=== PATIENT | female | born 1975 | race Caucasian/White ===

== ENCOUNTER → 2019-09-04 13:12 | Outpatient (BNVA) | payer MEDICAID, SELFPAY | PROVIDERS: Family Provider Family Medicine; PCP Family Medicine; Visit Provider Psychiatry & Neurology Psychiatry | DX: F41.1 Generalized anxiety disorder (principal); F33.1 Major depressive disorder, recurrent, moderate; F43.12 Post-traumatic stress disorder, chronic | CPT/HCPCS: 99213 ==

== ENCOUNTER 2019-09-17 20:00 | Outpatient (CLI) | payer MEDICAID, SELFPAY | END 2019-09-17 20:01 | disposition home or self-care (01) | LOC: SLEEP 09-18 09:32 | PROVIDERS: Family Provider Family Medicine; PCP Family Medicine; Visit Provider Family Medicine | DX: G47.30 Sleep apnea, unspecified (principal) | CPT/HCPCS: 95810 ==

== ENCOUNTER → 2019-11-07 08:39 | Outpatient (BNVA) | payer MEDICAID, SELFPAY | PROVIDERS: Family Provider Family Medicine; Visit Provider Psychiatry & Neurology Psychiatry | DX: F33.2 Major depressive disorder, recurrent severe without psychotic features (principal); F43.12 Post-traumatic stress disorder, chronic; F41.1 Generalized anxiety disorder | CPT/HCPCS: 99214 ==

== ENCOUNTER 2019-12-26 20:00 | Outpatient (CLI) | payer MEDICAID, SELFPAY | END 2019-12-26 20:01 | disposition home or self-care (01) | LOC: SLEEP 12-27 09:23 | PROVIDERS: Family Provider Family Medicine; Visit Provider Family Medicine | DX: G47.30 Sleep apnea, unspecified (principal) | CPT/HCPCS: 95811 ==

== ENCOUNTER → 2020-01-29 07:46 | Outpatient (BNVA) | payer MEDICAID, SELFPAY | PROVIDERS: Family Provider Family Medicine; Visit Provider Psychiatry & Neurology Psychiatry | DX: F41.1 Generalized anxiety disorder (principal); F43.12 Post-traumatic stress disorder, chronic; F33.2 Major depressive disorder, recurrent severe without psychotic features | CPT/HCPCS: 99213 ==

== ENCOUNTER → 2020-03-11 10:03 | Outpatient (BNVA) | payer MEDICAID, SELFPAY | PROVIDERS: Family Provider Family Medicine; Visit Provider Family Medicine | DX: E11.9 Type 2 diabetes mellitus without complications (principal); F33.2 Major depressive disorder, recurrent severe without psychotic features | CPT/HCPCS: 80048; 80175; 83036 ==

== ENCOUNTER 2020-03-19 13:29 | Outpatient (CLI) | payer MEDICAID, SELFPAY ==
--- NOTE | 2020-03-19 | MR_ITS ---
WS: [id number] [facility] 1975 MRI LUMBAR SPINE NONCONTRAST TECHNIQUE: Sagittal T1, T2 and STIR imaging. Axial T1 and T2 imaging. CLINICAL INFORMATION: Left L4-5 radiculopathy COMPARISON: FINDINGS: Mild lumbar curve. No acute compression. No high-grade central canal stenosis. Alignment appears unch anged since 2019. L1-L2: Mild annular bulging with slight effacement of the ventral thecal sac. Spinal canal and forame n are patent. Mild facet arthropathy. L2-L3: No significant disc bulging. Moderate facet arthropathy. Spinal canal and foramen are patent. L3-L4: Mild annular bulging with narrowing of the right subarticular recess. Small right foraminal pr otrusion with moderate right foraminal narrowing. Contact of the exiting right L3 nerve root is uncha nged since 2019. Left foramen is patent. Moderate facet arthropathy. L4-L5: Mild annular bulging with slight effacement of ventral thecal sac. Mild right and no significa nt left foraminal narrowing. Moderate facet arthropathy. L5-S1: Mild disc osteophytic ridging with slight effacement of ventral thecal sac. Tiny right proxima l foraminal protrusion slightly encroaches on the exiting right L5 nerve root unchanged. Foramen are patent. Mild facet arthropathy. Spinal canal is patent. 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 MR/MR lumbar spine wo con* [id number] IMPRESSION: 1. No significant changes since . 2. Mild lumbar curve. No acute compression. No high-grade central canal stenos is. 3. Small right foraminal protrusion L3-4 contacts the exiting right L3 nerve r oot. Recommend correlation for L3 nerve root symptoms. 4. Tiny right proximal foraminal protrusion with a small annular fissure slig htly encroaches on the exiting right L5 nerve root without significant impingem ent. This appears unchanged. 5. Mild to moderate facet arthropathy L3-L5.
== END 2020-03-19 13:30 | disposition home or self-care (01) ==
LOC: RADWPI 13:33
PROVIDERS: Family Provider Family Medicine; PCP Family Medicine; Visit Provider Family Medicine
DX: M54.16 Radiculopathy, lumbar region (principal); M51.26 Other intervertebral disc displacement, lumbar region; M47.816 Spondylosis without myelopathy or radiculopathy, lumbar region
CPT/HCPCS: 72148

== ENCOUNTER 2020-04-01 14:17 | Outpatient (CLI) | payer MEDICAID, SELFPAY ==
--- NOTE | 2020-04-01 14:36 | XRR_ITS ---
PROCEDURE INFORMATION: Exam: XR Thoracic Spine, 3 Views Exam date and time: 04/01/2020 2:58 PM Age: 44 years old Clinical indication: Pain in thoracic spine; Additional info: Pain in neck and back from large breasts TECHNIQUE: Imaging protocol: XR of the thoracic spine, 3 views. COMPARISON: No relevant prior studies available. FINDINGS: Vertebrae: Normal. No acute fracture. Normal alignment. Soft tissues: Unremarkable. XR/XR thoracic spine 2V [id number] IMPRESSION: Negative for acute bony abnormality
--- NOTE | 2020-04-01 14:38 | XRR_ITS ---
PROCEDURE INFORMATION: Exam: XR Cervical Spine, 2 or 3 Views Exam date and time: 04/01/2020 2:58 PM Age: 44 years old Clinical indication: Neck pain; Additional info: Neck and back pain from large breasts TECHNIQUE: Imaging protocol: XR of the cervical spine, 2 or 3 views. COMPARISON: No relevant prior studies available. FINDINGS: Vertebrae: Normal. No acute fracture. There is loss of cervical lordosis suggesting muscle spasm. There is mild osteoarthritis Soft tissues: A metallic pin is seen within the oral cavity. XR/XR cervical spine 3V* [id number] IMPRESSION: 1. No acute findings. 2. Mild osteoarthritis 3. Reversal of cervical lordosis 4. Negative for acute bony abnormality
== END 2020-04-01 14:18 | disposition home or self-care (01) ==
LOC: RAD 14:19
PROVIDERS: PCP Family Medicine; Visit Provider Family Medicine
DX: M54.2 Cervicalgia (principal); M47.812 Spondylosis without myelopathy or radiculopathy, cervical region
CPT/HCPCS: 72040; 72070

== ENCOUNTER → 2020-04-02 12:39 | Outpatient (BNVA) | payer MEDICAID, SELFPAY | PROVIDERS: PCP Family Medicine; Referring Provider Family Medicine; Visit Provider Anesthesiology Pain Medicine | DX: M47.816 Spondylosis without myelopathy or radiculopathy, lumbar region (principal); M51.16 Intervertebral disc disorders with radiculopathy, lumbar region; M54.9 Dorsalgia, unspecified; F17.210 Nicotine dependence, cigarettes, uncomplicated | CPT/HCPCS: 99203 ==

== ENCOUNTER → 2020-04-03 08:23 | Outpatient (BNVA) | payer MEDICAID, SELFPAY | PROVIDERS: PCP Family Medicine; Visit Provider Psychiatry & Neurology Psychiatry | DX: F41.1 Generalized anxiety disorder (principal); F43.12 Post-traumatic stress disorder, chronic; F33.2 Major depressive disorder, recurrent severe without psychotic features | CPT/HCPCS: 99213 ==

== ENCOUNTER 2020-04-22 13:26 | Outpatient (CLI) | payer MEDICAID, SELFPAY ==
--- NOTE | 2020-04-22 13:30 | MM_ITS ---
WS: [id number] BILATERAL DIGITAL SCREENING MAMMOGRAPHY WITH CAD CLINICAL INFORMATION: SCREENING HISTORY: Screening mammogram. No current complaints. COMPARISON: TECHNIQUE: Bilateral CC and MLO views. FINDINGS: Scattered fibroglandular densities bilaterally. No suspicious focal mass, asymmetry, calcifications, or architectural distortion. No evidence of malignancy. Stable punctate and lucent centered calcifica tions. MM/[place] [id number] IMPRESSION: BI-RADS: 2-Benign FOLLOW UP: 1 Year Follow-up Recommend return to annual screening mammography.
== END 2020-04-22 13:27 | disposition home or self-care (01) ==
LOC: RADSHAW 13:28
PROVIDERS: PCP Family Medicine; Visit Provider Family Medicine
DX: Z12.31 Encounter for screening mammogram for malignant neoplasm of breast (principal)
CPT/HCPCS: 77067

== ENCOUNTER → 2020-04-22 16:50 | Outpatient (BNVA) | payer MEDICAID, SELFPAY | PROVIDERS: PCP Family Medicine; Visit Provider Nurse Practitioner Family | DX: E11.9 Type 2 diabetes mellitus without complications (principal) | CPT/HCPCS: 36416; 82962 ==

== ENCOUNTER → 2020-07-20 14:38 | Outpatient (BNVA) | payer MEDICAID, SELFPAY | PROVIDERS: PCP Family Medicine; Visit Provider Family Medicine | DX: E11.9 Type 2 diabetes mellitus without complications (principal); I10 Essential (primary) hypertension; E28.39 Other primary ovarian failure | CPT/HCPCS: 80048; 83036 ==

== ENCOUNTER → 2020-07-23 11:06 | Outpatient (BNVA) | payer MEDICAID, SELFPAY | PROVIDERS: PCP Family Medicine; Visit Provider Anesthesiology Pain Medicine | DX: M54.9 Dorsalgia, unspecified (principal); M47.816 Spondylosis without myelopathy or radiculopathy, lumbar region; M51.16 Intervertebral disc disorders with radiculopathy, lumbar region; M79.605 Pain in left leg; F17.210 Nicotine dependence, cigarettes, uncomplicated; Z79.891 Long term (current) use of opiate analgesic | CPT/HCPCS: 99213; 99214 ==

== ENCOUNTER → 2020-07-27 09:03 | Outpatient (BNVA) | payer MEDICAID, SELFPAY | PROVIDERS: PCP Family Medicine; Visit Provider Psychiatry & Neurology Psychiatry | DX: F43.12 Post-traumatic stress disorder, chronic (principal); F41.1 Generalized anxiety disorder; F33.2 Major depressive disorder, recurrent severe without psychotic features | CPT/HCPCS: 99214 ==

== ENCOUNTER → 2020-10-19 07:57 | Outpatient (BNVA) | payer MEDICAID, SELFPAY | PROVIDERS: PCP Family Medicine; Visit Provider Psychiatry & Neurology Psychiatry | DX: F43.12 Post-traumatic stress disorder, chronic (principal); F41.1 Generalized anxiety disorder; F33.2 Major depressive disorder, recurrent severe without psychotic features; F17.200 Nicotine dependence, unspecified, uncomplicated | CPT/HCPCS: 99214 ==

== ENCOUNTER 2020-11-13 13:49 | Outpatient (CLI) | payer MEDICAID, SELFPAY ==
--- NOTE | 2020-11-13 13:55 | CT_ITS ---
WS: [id number] CT ABDOMEN AND PELVIS WITH CONTRAST HISTORY: R10.31 - Right lower quadrant pain TECHNIQUE: Imaging performed of the abdomen and pelvis with IV contrast. Single phase imaging of the abdomen. Coronal and sagittal reformats are submitted. All CT scans at [facility] use at least one of these dose optimization techniques: automated exposure control; mA and/or kV adjustment per patient size (includes targeted exams where dose is matched to clinical indication); or iterativ e reconstruction. IV CONTRAST: Omnipaque 300; 95 mL IV. Oral contrast: No DLP: 1804.42 mGy.cm COMPARISON: 02/12/2015 Lower thorax: Benign granuloma at the RIGHT lung base. Heart is normal size. No hiatal hernia. Liver/biliary system: Marked hepatomegaly and diffuse hepatic steatosis. Liver measures greater than 21 cm in length. No mass. Normal portal vein. Gallbladder: Status post cholecystectomy. Pancreas: Normal size pancreas and pancreatic duct. No adjacent inflammation. Spleen: Normal size spleen. No mass or infarct. Adrenal glands: Normal. Right kidney: Cortical cyst upper pole measures 8 mm. Left kidney: Normal. Aorta: Mild atherosclerosis with no aneurysm. Lymphadenopathy: None. Free fluid: None. GI tract: Appendix is normal. No significant fecal retention. No wall thickening or perimucosal edema . No obstruction. No significant diverticular disease. Abdominal wall: Unremarkable abdominal wall. No hernia. Pelvis: Well-distended urinary bladder. Prior hysterectomy. No adnexal masses. The LEFT ovary is iden tified and contains small follicles. Bones: Mild straightening of the normal lumbar lordosis. CT/CT abdomen pelvis w con* [id number] IMPRESSION: 1. Marked hepatomegaly and severe hepatic steatosis. 2. Prior cholecystectomy. 3. No acute abnormalities. 4. Prior hysterectomy. 5. Normal appendix.
[2020-11-13] MEDS: iohexol 300 mg/mL 100 mL Btl IV (14:18)
== END 2020-11-13 13:50 | disposition home or self-care (01) ==
PROVIDERS: PCP Family Medicine; Visit Provider Family Medicine
DX: R10.31 Right lower quadrant pain (principal); R16.0 Hepatomegaly, not elsewhere classified; K76.0 Fatty (change of) liver, not elsewhere classified; Z90.49 Acquired absence of other specified parts of digestive tract; Z90.710 Acquired absence of both cervix and uterus
CPT/HCPCS: 74177

== ENCOUNTER → 2020-11-19 12:24 | Outpatient (BNVA) | payer MEDICAID, SELFPAY | PROVIDERS: PCP Family Medicine; Visit Provider Family Medicine | DX: E11.9 Type 2 diabetes mellitus without complications (principal); R10.31 Right lower quadrant pain; E28.39 Other primary ovarian failure; M51.16 Intervertebral disc disorders with radiculopathy, lumbar region; F41.1 Generalized anxiety disorder; G89.4 Chronic pain syndrome; G47.33 Obstructive sleep apnea (adult) (pediatric); L73.9 Follicular disorder, unspecified | CPT/HCPCS: 83036; 85025 ==

== ENCOUNTER → 2021-01-13 12:29 | Outpatient (BNVA) | payer MEDICAID, SELFPAY | PROVIDERS: PCP Family Medicine; Visit Provider Psychiatry & Neurology Psychiatry | DX: F43.12 Post-traumatic stress disorder, chronic (principal); F41.1 Generalized anxiety disorder; F33.2 Major depressive disorder, recurrent severe without psychotic features; F17.200 Nicotine dependence, unspecified, uncomplicated | CPT/HCPCS: 99214 ==

== ENCOUNTER → 2021-01-18 14:01 | Outpatient (BNVA) | payer MEDICAID, SELFPAY | PROVIDERS: PCP Family Medicine; Visit Provider Nurse Practitioner Family | DX: J06.9 Acute upper respiratory infection, unspecified (principal); Z20.822 Contact with and (suspected) exposure to COVID-19 | CPT/HCPCS: 87635 ==

== ENCOUNTER → 2021-03-10 09:12 | Outpatient (BNVA) | payer MEDICAID, SELFPAY | PROVIDERS: PCP Family Medicine; Visit Provider Counselor Professional | DX: F33.2 Major depressive disorder, recurrent severe without psychotic features (principal); F41.1 Generalized anxiety disorder | CPT/HCPCS: 90834 ==

== ENCOUNTER → 2021-03-16 13:52 | Outpatient (BNVA) | payer MEDICAID, SELFPAY | PROVIDERS: PCP Family Medicine; Visit Provider Anesthesiology Pain Medicine | DX: Z01.812 Encounter for preprocedural laboratory examination (principal); E11.9 Type 2 diabetes mellitus without complications; M51.16 Intervertebral disc disorders with radiculopathy, lumbar region; F17.210 Nicotine dependence, cigarettes, uncomplicated; Z79.891 Long term (current) use of opiate analgesic | CPT/HCPCS: 36416; 64483; 64484; 82962; J1100; J3490 ==

== ENCOUNTER → 2021-03-30 08:35 | Outpatient (BNVA) | payer MEDICAID, SELFPAY | PROVIDERS: PCP Family Medicine; Visit Provider Anesthesiology Pain Medicine | DX: G89.29 Other chronic pain (principal); M47.816 Spondylosis without myelopathy or radiculopathy, lumbar region; M51.16 Intervertebral disc disorders with radiculopathy, lumbar region; M79.605 Pain in left leg; F17.210 Nicotine dependence, cigarettes, uncomplicated; Z79.891 Long term (current) use of opiate analgesic | CPT/HCPCS: 99213 ==

== ENCOUNTER → 2021-06-14 09:28 | Outpatient (BNVA) | payer MEDICAID, SELFPAY | PROVIDERS: PCP Family Medicine; Visit Provider Anesthesiology Pain Medicine | DX: G89.29 Other chronic pain (principal); M47.816 Spondylosis without myelopathy or radiculopathy, lumbar region; M51.16 Intervertebral disc disorders with radiculopathy, lumbar region; M79.605 Pain in left leg; F17.210 Nicotine dependence, cigarettes, uncomplicated; Z79.891 Long term (current) use of opiate analgesic | CPT/HCPCS: 99213 ==

== ENCOUNTER → 2021-07-12 14:44 | Outpatient (BNVA) | payer MEDICAID, SELFPAY | PROVIDERS: PCP Family Medicine; Visit Provider Family Medicine | DX: R30.0 Dysuria (principal); J41.0 Simple chronic bronchitis; E11.9 Type 2 diabetes mellitus without complications; R07.9 Chest pain, unspecified; F17.210 Nicotine dependence, cigarettes, uncomplicated; R94.31 Abnormal electrocardiogram [ECG] [EKG] | CPT/HCPCS: 80053; 81000; 83036; 85025 ==

== ENCOUNTER → 2021-09-28 11:20 | Outpatient (BNVA) | payer MEDICAID, SELFPAY | PROVIDERS: PCP Family Medicine; Visit Provider Psychiatry & Neurology Psychiatry | DX: F33.2 Major depressive disorder, recurrent severe without psychotic features (principal); F41.1 Generalized anxiety disorder; F43.12 Post-traumatic stress disorder, chronic; F17.210 Nicotine dependence, cigarettes, uncomplicated | CPT/HCPCS: 99214 ==

== ENCOUNTER → 2021-12-28 07:58 | Outpatient (BNVA) | payer MEDICAID, SELFPAY | PROVIDERS: PCP Family Medicine; Referring Provider Family Medicine; Visit Provider Specialist | DX: F33.2 Major depressive disorder, recurrent severe without psychotic features (principal); G56.21 Lesion of ulnar nerve, right upper limb; E11.9 Type 2 diabetes mellitus without complications; G47.30 Sleep apnea, unspecified | CPT/HCPCS: 80053; 83036; 84443; 95908; 95910 ==

== ENCOUNTER → 2021-12-29 12:46 | Outpatient (BNVA) | payer MEDICAID, SELFPAY | PROVIDERS: PCP Family Medicine; Visit Provider Psychiatry & Neurology Psychiatry | DX: F41.1 Generalized anxiety disorder (principal); F43.12 Post-traumatic stress disorder, chronic; F33.2 Major depressive disorder, recurrent severe without psychotic features; F17.210 Nicotine dependence, cigarettes, uncomplicated | CPT/HCPCS: 99214 ==

== ENCOUNTER → 2021-12-31 10:02 | Outpatient (BNVA) | payer MEDICAID, SELFPAY | PROVIDERS: PCP Family Medicine; Visit Provider Obstetrics & Gynecology | DX: Z01.419 Encounter for gynecological examination (general) (routine) without abnormal findings (principal) | CPT/HCPCS: 87624 ==

== ENCOUNTER → 2022-01-11 14:43 | Outpatient (BNVA) | payer MEDICAID, SELFPAY | PROVIDERS: PCP Family Medicine; Referring Provider Family Medicine; Visit Provider Nurse Practitioner Family | DX: G56.21 Lesion of ulnar nerve, right upper limb (principal) | CPT/HCPCS: 99214 ==

== ENCOUNTER 2022-02-03 07:32 | Day surgery (SDC) | payer MEDICAID, SELFPAY ==
[2022-02-02 13:50] VITALS: BMI 42.7
[2022-02-03] VITALS (18 sets, daily range): BP systolic 113–179; BP diastolic 72–104; PULSE 77–99; RESP 15–20; TEMP 36.2–36.7; O2SAT 86–95
[2022-02-03 07:52] LABS: OR HCG Qualitative Urine Negative (Negative)
[2022-02-03] MEDS: sodium chloride 0.9% 1,000 ML 30 ML IV (08:00)
--- NOTE | 2022-02-03 08:11 | W.PM.OPSUD ---
Surgery/Procedure H&P Update DATE OF PROCEDURE: February 03, 2022 DATE H&P PERFORMED: 01/11/22 H&P UPDATE INFORMATION: I have reviewed H&P completed within last 30 days PREOP DIAGNOSIS: Right cubital tunnel syndrome PLANNED PROCEDURE: Operation Date: 02/03/22 09:00 Proposed Procedures p right elbow ulnar nerve decompression/ 77240,G56.21(Right) - Travis Hurt MD
--- NOTE | 2022-02-03 08:41 | ECG_ITS ---
[facility] Test Date: 2022-02-03 Pat Name: Jenn Bonilla Department: Room: Gender: Female Medicare Biller: : 1975 Requested By: Sean Perez Order Number: [id number] MD: Ryley Mackenzie M.D. Measurements Intervals [place] Rate: 80 P: 43 DC: 158 QRS: 48 QRSD: 93 T: 44 QT: 403 QTc: 467 Interpretive Statements SINUS RHYTHM Compared to ECG 10/20/2017 12:34:07 No significant changes Electronically Signed On 02-03-2022 14:28:06 CDT by Ryley Mackenzie M.D. [id number]
--- NOTE | 2022-02-03 09:03 | P.ANESASSM_ITS ---
Pre-Anesthetic Assessment Height/Weight: Height 1.63 m Weight 112.945 kg Temp Pulse Resp BP Pulse Ox O2 Del Method 97.9 F 88 16 147/86 95 02/03/22 07:47 02/03/22 07:47 02/03/22 07:47 02/03/22 07:47 02/03/22 07:47 02/03/22 07:48 Preop Diagnosis: Right cubital tunnel syndrome Operation Date: 02/03/22 09:00 Proposed Procedures p right elbow ulnar nerve decompression/ 02027,G56.21(Right) - Travis Hurt MD Familial anesthetic complications: none Was Beta Chad taken within 24 hours: N/A Was Clonidine taken within 24 hours: N/A Last intake: Intake Last Liquid Date 02/02/22 Last Liquid Time 23:30 Last Solid Date 02/02/22 Last Solid Time 21:30 Social Tobacco and No alcohol Exam alert, oriented x 3 and regular rate & rhythm Airway Submandibular: within normal limits Cervical ROM: within normal limits Mallampati: Class II Dentition: false Pulmonary Chronic Obstructive Pulmonary Disease and Sleep Apnea CV/HEM Hypertension GI Gastroesophageal Reflux Disease Metabolic Diabetes Mellitus, Hyperlipidemia and Morbid Obesity [facility] [place] Lower Back Pain Neuropsych Anxiety, Depression and Neuropathy Anesthetic Plan ASA status: 3 Anesthesia: General Medications/Allergies Home Medications Medication Instructions Recorded Confirmed Last Taken Type budesonide-formoterol HFA 80 2 puff inhalation BID 30 days 09/25/20 02/02/22 Unknown Rx mcg-4.5 mcg/actuation aerosol #10.2 grams inhaler (Symbicort) ProAir HFA 90 mcg/actuation See Rx Instructions .Route 11/18/20 02/02/22 Unknown Rx aerosol inhaler (albuterol sulfate) .COMPLEX #9 grams OneTouch Ultra2 Meter #1 ea 03/03/21 01/11/22 Unknown Rx (blood-glucose meter) blood sugar diagnostic (OneTouch See Rx Instructions .Route 04/05/21 02/02/22 Unknown Rx Ultra Test) .COMPLEX #100 ea propranolol 40 mg tablet See Rx Instructions .Route 04/27/21 02/02/22 Unknown Rx .COMPLEX #60 tabs nitroglycerin 0.4 mg sublingual 0.4 mg sublingual Q5M PRN chest 07/12/21 2 Unknown Rx tablet pain #30 tabs lancets 33 gauge (OneTouch Delica #100 ea 08/09/21 01/11/22 Unknown Rx Lancets) vitamin with calcium 1 tab PO DAILY 90 days #90 tabs 08/31/21 02/02/22 Unknown Rx no.72-iron 27 mg-folic acid 1 mg tablet (PrePlus) dapagliflozin 5 mg tablet (Farxiga) See Rx Instructions .Route 10/25/21 02/02/22 Unknown Rx .COMPLEX #30 tabs metformin 500 mg tablet See Rx Instructions .Route 10/27/21 02/02/22 Unknown Rx .COMPLEX #60 tabs ondansetron HCl 4 mg tablet See Rx Instructions .Route 11/15/21 02/02/22 Unknown Rx .COMPLEX #30 tabs lisinopril 20 mg tablet See Rx Instructions .Route 11/30/21 02/02/22 Unknown Rx .COMPLEX #30 tabs hydroxyzine HCl 50 mg tablet 50 mg PO QID PRN anxiety #120 tabs 12/07/2109/21 Unknown Rx fenofibrate nanocrystallized 145 See Rx Instructions .Route 12/21/21 02/02/22 Unknown Rx mg tablet .COMPLEX #30 tabs omeprazole 20 mg capsule,delayed See Rx Instructions .Route 12/21/21 02/03/22 02/03/22 05:30 Rx release .COMPLEX #30 caps pregabalin 300 mg capsule 300 mg PO BID #90 caps 12/21/21 02/03/22 02/03/22 05:30 Rx lamotrigine 200 mg tablet 200 mg PO .hs #30 tabs 12/29/21 02/02/22 Unknown Rx risperidone 0.5 mg tablet 0.5 mg PO DAILY #30 tabs 12/29/21 02/02/22 Unknown Rx (Risperdal) trazodone 100 mg tablet 300 mg PO .HS #90 tabs 12/29/21 02/02/22 Unknown Rx vilazodone 40 mg tablet (Viibryd) 40 mg PO DAILY #30 tabs 12/29/21 02/02/22 Unknown Rx glipizide 5 mg tablet 7.5 mg PO TID 12/31/21 02/02/22 Unknown History duloxetine 30 mg capsule,delayed 30 mg PO DAILY #30 caps 01/04/22 02/02/22 Unknown Rx release oxycodone-acetaminophen 10 mg-325 1 tab PO TID PRN pain 30 days #70 01/31/22 02/03/22 02/03/22 05:30 Rx mg tablet tabs hydrocodone 5 mg-acetaminophen 325 1 tab PO Q4H #20 tabs 02/03/22 Unknown Rx mg tablet Allergies Allergy/AdvReac Type Severity Reaction Status Date / Time ketorolac [From Toradol] AdvReac Intermediate Hurt all Verified 02/02/22 13:44 over, Nausea meloxicam AdvReac Intermediate Unknown Verified 02/02/22 13:44 prednisone AdvReac Intermediate Muscle Verified 02/02/22 13:44 weakness tramadol AdvReac Intermediate Hurt all Verified 02/02/22 13:44 over & nausea Current Medications Generic Name Dose Route Start Last Admin Trade Name Freq PRN Reason Stop Dose Admin Sodium Chloride 1,000 mls @ 30 mls/hr 02/03/22 07:45 02/03/22 08:00 Sodium Chloride 0.9% IV 02/04/22 07:44 30 mls/hr .Q24H EDD Administration PFSH Anesthesia Medical History (Updated 02/02/22 @ 12:44 by Britt Haynes LPN) Bilateral carpal tunnel syndrome Chronic pain COPD (chronic obstructive pulmonary disease) Gastroesophageal reflux disease without esophagitis Hypercholesteremia Hypertension Intervertebral disc disorder with radiculopathy of lumbar region Large breasts Obesity, morbid Psychiatric care Sleep apnea Type 2 diabetes mellitus Surgical History History of cholecystectomy Hx of hysterectomy 2001, partial hysterectomy Hx of oral surgery Hx of tubal ligation Family History Mother Diabetes Hypertension Father Diabetes Hyperlipidemia Hypertension Stroke Sister Diabetes Brother Hypertension Stroke Denies family history of Clotting disorder Chronic kidney disease (CKD) Bleeding disorder Cancer Thyroid disease Social History Smoking and tobacco status: current every day smoker Alcohol intake: never History of recent travel: No Data Anesthesia Cardiac Studies: No Data to Display
[2022-02-03] MEDS: ceFAZolin 2,000 MG in sodium chloride 0.9% (plus) 50 ML 100 MG IV (09:20)
--- NOTE | 2022-02-03 10:22 | PM.OP ---
Operative Report Date of procedure: February 03, 2022 Pre-op diagnosis: Preop Diagnosis Right cubital tunnel syndrome Post-op diagnosis: same Procedure done: Decompression ulnar nerve at right elbow Pathology: none sent Surgeon: Travis Hurt Anesthesia: General Estimated blood loss (mL): 5 Tourniquet time (min): 21 Complications: None Findings: The patient had dense scar tissue about the median nerve at the elbow Condition: stable Disposition: PACU Brief History: The patient is a 46-year-old female with paresthesias and pain into the right hand and EMG nerve conduction studies suggesting ulnar neuropathy. Physical exam revealed a positive Tinel's and compression test of the elbow suggesting compression behind the medial epicondyle. Surgical decompression was chosen to improve pain and function Procedure: Patient was taken to the operating room and given a general anesthesia. He was given 2 g of Ancef and prepped and draped in supine position with his elbow exposed. A timeout was performed. A 5 cm long and curved incision was made just posterior to the medial epicondyle. Under loupe magnification dissection was carried down through this obtains fat to the fascia over the medial intermuscular septum at the elbow. The fascia was divided just posteriorly and the ulnar nerve identified. Dissection was then accomplished distally using a hemostat elevating fascia off the nerve and freeing the nerve. Dissection was carried down through to the flexor carpi ulnaris fascia which was divided. At the conclusion of the decompression the elbow was brought through range of motion and the nerve noted noted to be stable behind the medial epicondyle. The tourniquet was deflated. Hemostasis provided with electrocautery. Deep fascia was closed with 2-0 Vicryl. The skin was closed with a running 3-0 Prolene.. Compressive dressing was applied. Patient was extubated taken recovery room in stable condition.
[2022-02-03] MEDS: ipratropium-albuterol 3 mL Neb INHALATION (11:11)
[2022-02-03] MEDS: glycopyrrolate 0.2 mg/mL SDV 2 mL IM (11:35)
[2022-02-03] MEDS: HYDROcodone-acetaminophen 5-325 mg Tablet 1 TAB PO (11:55)
--- NOTE | 2022-02-03 13:45 | ANE.PACU2 ---
Inpatient post-anesthesia follow up: Airway intact: Yes Vital signs: Temperature 97.6 F Pulse Rate 99 Respiratory Rate 18 Blood Pressure 128/81 Pulse Oximetry 91 Oxygen Delivery Me thod Room Air Oxygen Flow Rate 2 Fraction of Inspir ed Oxygen Hydration adequate: Yes Nausea and vomiting: No Pain level: 3 Mental status: Baseline
[2022-02-04 09:59] LABS: Glucose Point of Care 214 mg/dL (70-110)
== END 2022-02-03 12:14 | disposition home or self-care (01) ==
PROVIDERS: Anesthesiology; PCP Family Medicine; Visit Provider Orthopaedic Surgery
PROC: (CPT 64718; principal; 2022-02-03 08:50)
DX: G56.21 Lesion of ulnar nerve, right upper limb (principal); J44.9 Chronic obstructive pulmonary disease, unspecified; G47.30 Sleep apnea, unspecified; I10 Essential (primary) hypertension; K21.9 Gastro-esophageal reflux disease without esophagitis; E78.5 Hyperlipidemia, unspecified; E66.01 Morbid (severe) obesity due to excess calories; Z68.41 Body mass index [BMI] 40.0-44.9, adult; E11.40 Type 2 diabetes mellitus with diabetic neuropathy, unspecified; Z79.84 Long term (current) use of oral hypoglycemic drugs; E78.00 Pure hypercholesterolemia, unspecified; E11.9 Type 2 diabetes mellitus without complications; F17.210 Nicotine dependence, cigarettes, uncomplicated
CPT/HCPCS: 64718; 36416; 81025; 82962; 84703; 93005; J0330; J2405; J2704; J3010; J3490; J7030

== ENCOUNTER → 2022-02-08 13:20 | Outpatient (BNVA) | payer MEDICAID, SELFPAY | PROVIDERS: PCP Family Medicine; Visit Provider Nurse Practitioner Family | DX: Z98.890 Other specified postprocedural states (principal); M54.12 Radiculopathy, cervical region | CPT/HCPCS: 99213 ==

== ENCOUNTER → 2022-02-10 15:14 | Outpatient (BNVA) | payer MEDICAID, SELFPAY | PROVIDERS: PCP Family Medicine; Visit Provider Physician Assistant | DX: M47.812 Spondylosis without myelopathy or radiculopathy, cervical region (principal) | CPT/HCPCS: 72050; 99203 ==

== ENCOUNTER → 2022-02-15 14:14 | Outpatient (BNVA) | payer MEDICAID, SELFPAY | PROVIDERS: PCP Family Medicine; Visit Provider Nurse Practitioner Family | DX: Z98.890 Other specified postprocedural states (principal) | CPT/HCPCS: 99024 ==

== ENCOUNTER → 2022-03-09 10:10 | Outpatient (BNVA) | payer MEDICAID, SELFPAY | PROVIDERS: PCP Family Medicine; Visit Provider Nurse Practitioner Family | DX: Z98.890 Other specified postprocedural states (principal) | CPT/HCPCS: 99024; 99213 ==

== ENCOUNTER → 2022-05-12 14:36 | Outpatient (BNVA) | payer MEDICAID, SELFPAY | PROVIDERS: PCP Family Medicine; Visit Provider Physician Assistant | DX: M47.812 Spondylosis without myelopathy or radiculopathy, cervical region (principal) | CPT/HCPCS: 99213 ==

== ENCOUNTER → 2022-07-05 10:21 | Outpatient (BNVA) | payer MEDICAID, SELFPAY | PROVIDERS: PCP Family Medicine; Visit Provider Internal Medicine Cardiovascular Disease | DX: R07.9 Chest pain, unspecified (principal); I10 Essential (primary) hypertension; E78.00 Pure hypercholesterolemia, unspecified; F17.210 Nicotine dependence, cigarettes, uncomplicated; E11.9 Type 2 diabetes mellitus without complications; Z79.84 Long term (current) use of oral hypoglycemic drugs; K21.9 Gastro-esophageal reflux disease without esophagitis; G47.33 Obstructive sleep apnea (adult) (pediatric); J41.0 Simple chronic bronchitis | CPT/HCPCS: 93005; 99204; Q3014 ==

== ENCOUNTER 2022-07-06 11:03 | Emergency (ER) | payer MEDICAID, SELFPAY ==
[2022-07-06 11:10] VITALS: BP 188/121; PULSE 79; RESP 18; TEMP 36.7; O2SAT 100; BMI 39.9
--- NOTE | 2022-07-06 11:10 | W.ED.CHESTPA ---
HPI - Chest Pain General: Chief Complaint: Chest Pain Stated Complaint: chest pain Time Seen by Provider: 07/06/22 11:10 History of Present Illness: Ms. Bonilla is a 47-year-old lady with history of obesity, tobaccoism, hypertension, hyperlipidemia, diabetes presenting to the emergency department due to chest pain. She reports rare history of intermittent episodes previously that are generally mild and improved with rest. Over the past few days she has had near constant pain which has been increasing and became severe this morning. She describes right anterior chest and substernal pain associated with shortness of breath, diaphoresis, nausea. Density symptoms is moderate to severe. Course has worsened. No other specific changes in health, exacerbating, or alleviating factors identified. Onset (ago): day(s) Timing of current episode: constant and increasing Prior episodes: Yes (rare) Onset: during exertion Pain location: substernal Pain radiation: right arm, right shoulder and right scapula Severity: severe Quality: aching and heaviness Relieving factors: nothing Exacerbating factors: exertion Associated symptoms: Reports diaphoresis, dyspnea and nausea Review of Systems General: Reports: 10 or more systems reviewed and unremarkable except in HPI and below Const: Reports: diaphoresis Resp: Reports: dyspnea GI: Reports: nausea PFSH ED PFSH: Medical History Bilateral carpal tunnel syndrome Chronic pain COPD (chronic obstructive pulmonary disease) Gastroesophageal reflux disease without esophagitis Hypercholesteremia Hypertension Intervertebral disc disorder with radiculopathy of lumbar region Large breasts Obesity, morbid Psychiatric care Sleep apnea Type 2 diabetes mellitus Surgical History History of cholecystectomy Hx of hysterectomy 2001, partial hysterectomy Hx of oral surgery Hx of tubal ligation Family History Mother Diabetes Hypertension Father Diabetes Hyperlipidemia Hypertension Stroke Sister Diabetes Brother Hypertension Stroke Social History Smoking and tobacco status: current every day smoker cigarettes Packs smoked per day: 1 Years cigarettes smoked: 20 Alcohol intake: never History of recent travel: No Physical Exam Const: COMMON NORMALS: alert GENERAL APPEARANCE: cooperative and well developed NUTRITIONAL APPEARANCE: obese HENMT: COMMON NORMALS: normocephalic and atraumatic HEAD & SCALP: normocephalic and atraumatic Eye: COMMON NORMALS: conjunctivae normal CONJUNCTIVA: Yes conjunctivae normal SCLERA: sclerae normal Neck/C-Spine: COMMON NORMALS: supple GENERAL: Yes trachea midline Resp: COMMON NORMALS: clear to auscultation bilaterally EFFORT & INSPECTION: Yes able to speak in complete sentences AUSCULTATION: clear to auscultation bilaterally Cardio: COMMON NORMALS: regular rate and regular rhythm RATE: regular rate RHYTHM: regular rhythm GI: COMMON NORMALS: Soft to palpation PALPATION: Yes Soft to palpation and No Tenderness to palpation present (GI) Extremity: GENERAL: Yes normal exam except as noted and No edema Neuro: COMMON NORMALS: moves all extremities SENSORIUM/ORIENTATION: Yes alert and No Orientation impaired Psych: COMMON NORMALS: mental status grossly normal and Normal thought process present THOUGHT PROCESS: Normal thought process present Course Vital Signs: Vital signs: Vital Signs Temperature 98.0 F 07/06/22 11:10 Pulse Rate 70 07/06/22 15:01 Respiratory Rate 16 07/06/22 15:01 Blood Pressure 164/103 07/06/22 15:01 Pulse Oximetry 95 07/06/22 15:01 Oxygen Delivery Me thod 07/06/22 11:10 MDM - Chest Pain Medical Decision Making 47-year-old lady presenting with chest pain. Exam as above. EKG shows sinus rhythm, nonspecific ST segment abnormalities. No STEMI. Labs with mild leukocytosis and hemoconcentration. Metabolic panel similar to prior without acute derangement requiring intervention. D-dimer is negative. Negative range 2-hour delta troponin. BNP not significantly elevated. Chest x-ray with no lobar consolidation or pneumothorax. Patient treated in the emergency department with aspirin and analgesia with improvement. Most likely etiology of patient's symptoms is unspecified chest pain. The results of ED evaluation were discussed with the patient including possible disposition options. I discussed risk stratification by heart score and estimated risk of major adverse cardiac events. The patient wishes to proceed with outpatient management. I discussed prescriptions and/or symptomatic cares (if applicable) including appropriate and responsible use, followup plan, and return precautions. The patient verbalized understanding and felt safe for discharge. Medical Records I reviewed the patient's medical records. Lab Data I reviewed the patient's lab results. 07/06/22 11:23 07/06/22 11:23 Radiology Impressions Chest X-Ray 07/06/22 11:26 Impression: Negative chest. Laboratory Results WBC 13.1 10^3/uL (4.0-10.0) H 07/06/22 11:23 RBC 5.47 10^6/uL (4.1-5.3) H 07/06/22 11:23 Hgb 16.2 g/dL (11.5-15.3) H 07/06/22 11:23 Hct 49.7 % (37.0-47.0) H 07/06/22 11:23 MCV 90.9 fl (81-99) 07/06/22 11:23 MCH 29.6 pg (28.0-34.0) 07/06/22 11:23 MCHC 32.6 g/dL (30.0-36.0) 07/06/22 11:23 RDW 13.8 % (12.1-15.1) 07/06/22 11:23 Plt Count 323 10^3/cmm (130-400) 07/06/22 11:23 MPV 10.8 fL (7.4-10.4) H 07/06/22 11:23 Neut % (Auto) 51.8 % 07/06/22 11:23 Lymph % (Auto) 40.0 % 07/06/22 11:23 Imperial % (Auto) 5.0 % 07/06/22 11:23 Eos % (Auto) 2.0 % 07/06/22 11:23 Baso % (Auto) 0.9 % 07/06/22 11:23 Neut # (Auto) 6.78 10^3/uL (1.8-7.7) 07/06/22 11:23 Lymph # (Auto) 5.2 10^3/uL (0.8-4.8) H 07/06/22 11:23 Imperial # (Auto) 0.7 10^3/uL (0.2-0.9) 07/06/22 11:23 Eos # (Auto) 0.3 10^3/uL (0.0-0.8) 07/06/22 11:23 Baso # (Auto) 0.1 10^3/uL (0.0-0.1) 07/06/22 11:23 Nucleated RBC % (auto) 0 % 07/06/22 11:23 Nucleated RBCs # 0.0 /100WBC 07/06/22 11:23 D-Dimer <= 0.27 ug/mIFEU (0-0.59) 07/06/22 11:23 Sodium 140 mmol/L (136-145) 07/06/22 11:23 Potassium 4.3 mmol/L (3.5-5.1) 07/06/22 11:23 Chloride 101 mmol/L (98-107) 07/06/22 11:23 Carbon Dioxide 26 mmol/L (22-29) 07/06/22 11:23 Anion Gap 17.3 (5-19) 07/06/22 11:23 BUN 19 mg/dL (6-20) 07/06/22 11:23 Creatinine 1.0 mg/dL (0.5-0.9) H 07/06/22 11:23 GFR Calculation 59.4 mL/min (90-130) L 07/06/22 11:23 Glucose 131 mg/dL (65-115) H 07/06/22 11:23 Calculated Osmolality 294 mOsm/kg (285-295) 07/06/22 11:23 Calcium 9.9 mg/dL (8.5-10.5) 07/06/22 11:23 Total Bilirubin 0.2 mg/dL (0.15-1.2) 07/06/22 11:23 AST 23 U/L (0-32) 07/06/22 11:23 ALT 23 U/L (0-33) 07/06/22 11:23 Alkaline Phosphatase 91 U/L (35-105) 07/06/22 11:23 Troponin T Baseline 7 ng/L (0-10) 07/06/22 11:23 Troponin T 120 Minute 6.04 ng/L (0-10) 07/06/22 13:27 Delta Troponin T -0.96 ABS# (0-10) L 07/06/22 13:27 NT-Pro-B Natriuret Pep 272 pg/mL (0-125) H 07/06/22 11:23 Total Protein 7.6 g/dL (6.6-8.7) 07/06/22 11:23 Albumin 4.2 g/dL (3.5-5.2) 07/06/22 11:23 Globulin 3.4 g/dL (1.3-4.6) 07/06/22 11:23 Lipase 45 U/L (13-60) 07/06/22 11:23 Discharge Plan Discharge Patient Disposition: Home Clinical Impression: Chest pain Condition: Stable Prescriptions: No Action ibuprofen 200 mg tablet 200 mg PO Q6H PRN (Reason: Pain) Excedrin Migraine 250-250-65 mg tablet 1 tab PO Q6H PRN (Reason: Migraine Headache) nitroglycerin 0.4 mg tablet, sublingual 0.4 mg sublingual Q5M PRN (Reason: chest pain) Qty: 30 1RF Rx Instructions: do not exceed 3 doses per episode albuterol sulfate [ProAir HFA] 90 mcg/actuation HFA aerosol inhaler See Rx Instructions .ROUTE .COMPLEX Qty: 9 3RF Dose Instruction: INHALE 1 PUFF BY MOUTH 4 TIMES DAILY NEEDED FOR SHORTNESS OF BREATH OR WHEEZING Rx Instructions: INHALE 1 PUFF BY MOUTH 4 TIMES DAILY NEEDED FOR SHORTNESS OF BREATH OR WHEEZING (DME) blood-glucose meter [OneTouch Ultra2 Meter] [facility] [place] See Rx Instructions .Route Qty: 1 0RF Rx Instructions: to check blood sugar once daily (DME) lancets [OneTouch Delica Lancets] 33 gauge [facility] See Rx Instructions .Route Qty: 100 3RF Rx Instructions: use once daily to check blood sugar 90 day supply ondansetron HCl 4 mg tablet See Rx Instructions .ROUTE .COMPLEX Qty: 30 3RF Dose Instruction: TAKE 1 TABLET BY MOUTH EVERY 8 HOURS FOR 30 DAYS NEEDED FOR NAUSEA AND VOMITING. Rx Instructions: TAKE 1 TABLET BY MOUTH EVERY 8 HOURS FOR 30 DAYS NEEDED FOR NAUSEA AND VOMITING. pregabalin 150 mg capsule 150 mg PO TID Qty: 90 4RF PrePlus 27 mg iron- 1 mg tablet 1 tab PO DAILY 90 Days Qty: 90 3RF glipizide 5 mg tablet 10 mg PO BID Qty: 120 5RF oxycodone-acetaminophen 10-325 mg tablet 1 tab PO Q8H PRN (Reason: pain) 30 Days Qty: 70 0RF duloxetine 30 mg capsule,delayed release(DR/EC) 30 mg PO DAILY Qty: 30 0RF hydroxyzine HCl 50 mg tablet 50 mg PO QID PRN (Reason: anxiety) Qty: 120 0RF vilazodone [Viibryd] 40 mg tablet 40 mg PO DAILY Qty: 30 0RF Farxiga 5 mg tablet 5 mg PO DAILY Qty: 90 1RF metformin 500 mg tablet 500 mg PO BID Qty: 180 1RF lamotrigine 200 mg tablet 200 mg PO BEDTIME fenofibrate nanocrystallized 145 mg tablet 145 mg PO DAILY Symbicort 80-4.5 mcg/actuation HFA aerosol inhaler 2 puff INHALATION BID PRN (Reason: Shortness Of Breath) lisinopril 20 mg tablet 20 mg PO DAILY propranolol 40 mg tablet 40 mg PO BID trazodone 100 mg tablet 300 mg PO BEDTIME omeprazole 20 mg capsule,delayed release(DR/EC) 20 mg PO DAILY Risperdal 0.5 mg tablet 0.5 mg PO BEDTIME Discharge Orders: Discharge ED (Routine); Ordered 07/06/22 Ordered By: Americo Rod Referrals: Len Wheat MD [Primary Care Provider] - Discharge Diet: Usual diet Discharge Activity: Increase activity as tolerated Patient Instructions: Chest Pain (ED), Opioid Safety Activity Restrictions/Additional Instructions: Thank you for visiting the emergency department. You were seen and evaluated for chest pain. The exact cause of your chest pain is unclear though I do believe that this requires further evaluation. You are at least moderate risk for major adverse cardiac events as discussed. You are electing to have this done in the outpatient setting. I will message case management for further assistance in scheduling this. Please follow-up with your primary care provider. Please follow-up with cardiology. Return to the emergency department for worsening symptoms or anything else that you are concerned about and feel needs emergency department evaluation. Coding Level of Care Code ED [employer] Supervisor for Joann Fwd Exam Comprehensive
--- NOTE | 2022-07-06 11:16 | ECG_ITS ---
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 Measurements Intervals [place] Rate: 74 P: 64 TX: 123 QRS: 50 QRSD: 78 T: 60 QT: 389 QTc: 434 Interpretive Statements SINUS RHYTHM MODERATE ST DEPRESSION [0.05+ mV ST DEPRESSION] Compared to ECG 02/03/2022 08:41:46 ST (T wave) deviation now present Electronically Signed On 07-07-2022 8:56:30 RESOURCE DIRECTOR by David Beverly M.D. [id number]
--- NOTE | 2022-07-06 11:26 | XR_ITS ---
WS: [id number] Portable AP upright chest, 07/06/2022 Clinical Data: cp Comparison: Two-view chest, 02/12/2015. Findings: No nodules, masses or effusions are seen. The heart is normal. The pulmonary vascularity is not increased. No pneumonia or pneumothorax is seen. XR/XR chest 1V portable [id number] Impression: Negative chest.
[2022-07-06] MEDS: nitroglycerin 0.4 mg sublingual Tablet SUBLINGUAL (11:43)
[2022-07-06 11:46] VITALS: RESP 18
[2022-07-06] MEDS: fentaNYL 50 mcg/mL INJ 2mL IVP (11:46)
[2022-07-06] MEDS: aspirin 81 mg Chew Tablet 324 MG PO (11:46)
[2022-07-06 11:50] LABS: Basophils # 0.1 10^3/uL (0.0-0.1); Basophils % 0.9 %; Eosinophils # 0.3 10^3/uL (0.0-0.8); Hematocrit 49.7 % (37.0-47.0); Hemoglobin 16.2 g/dL (11.5-15.3); Lymphocytes # 5.2 10^3/uL (0.8-4.8); Mean Corpuscular HGB Conc 32.6 g/dL (30.0-36.0); Mean Corpuscular Hemoglobin 29.6 pg (28.0-34.0); Mean Corpuscular Volume 90.9 fl (81-99); Mean Platelet Volume 10.8 fL (7.4-10.4); Monocytes # 0.7 10^3/uL (0.2-0.9); Neutrophils # 6.78 10^3/uL (1.8-7.7); Neutrophils % 51.8 %; Nucleated Red Blood Cells % 0 %; Platelet Count 323 10^3/cmm (130-400); Red Blood Count 5.47 10^6/uL (4.1-5.3); Red Cell Distribution Width 13.8 % (12.1-15.1); White Blood Count 13.1 10^3/uL (4.0-10.0)
[2022-07-06 12:05] LABS: D Dimer <= 0.27 ug/mIFEU (0-0.59)
[2022-07-06 12:11] LABS: Troponin(5th) Baseline 7 ng/L (0-10)
[2022-07-06 12:18] LABS: Alanine Aminotransferase 23 U/L (0-33); Albumin Level 4.2 g/dL (3.5-5.2); Alkaline Phosphatase 91 U/L (35-105); Anion Gap 17.3 (5-19); Aspartate Amino Transferase 23 U/L (0-32); Blood Urea Nitrogen 19 mg/dL (6-20); Calcium 9.9 mg/dL (8.5-10.5); Carbon Dioxide 26 mmol/L (22-29); Chloride 101 mmol/L (98-107); Globulin 3.4 g/dL (1.3-4.6); Glomerular Filtration Rate 59.4 mL/min (90-130); Glucose 131 mg/dL (65-115); Lipase 45 U/L (13-60); NT Pro B Type Natriuretic Pept 272 pg/mL (0-125); Osmolality Calculated 294 mOsm/kg (285-295); Potassium 4.3 mmol/L (3.5-5.1); Sodium 140 mmol/L (136-145); Total Bilirubin 0.2 mg/dL (0.15-1.2); Total Protein 7.6 g/dL (6.6-8.7)
--- NOTE | 2022-07-06 13:26 | ECG_ITS ---
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 Measurements Intervals [place] Rate: 69 P: 52 MI: 145 QRS: 44 QRSD: 93 T: 48 QT: 432 QTc: 463 Interpretive Statements SINUS RHYTHM POSSIBLE LEFT ATRIAL ENLARGEMENT [-0.1mV P-WAVE IN V1/V2] Compared to ECG 07/06/2022 11:17:36 ST (T wave) deviation no longer present Electronically Signed On 07-07-2022 8:57:25 RETAIL SALES ASSOCIATE BILINGUAL by David Beverly M.D. [id number]
[2022-07-06 14:27] LABS: Troponin 5 2HR 6.04 ng/L (0-10)
[2022-07-06 14:40] LABS: Troponin 5 2HR Delta -0.96 ABS# (0-10)
[2022-07-06 15:01] VITALS: BP 164/103; PULSE 70; RESP 16; O2SAT 95
--- NOTE | 2022-07-07 09:30 | DCPLANNER ---
Addendum entered by Candice Price 08/05/22 14:21: Stress test for patient was rescheduled Addendum entered by Candice Price 07/08/22 14:32: Patient has an outpatient stress test scheduled for Tuesday, July 26, 2022 at 9:00, centralized scheduling will call patient with appointment information. Original Note: biomass production manager had message to schedule an outpatient stress test for patient. biomass production manager faxed signed order to centralized scheduling, who will call patient with appointment information.
== END 2022-07-06 15:02 | disposition home or self-care (01) ==
PROVIDERS: Emergency Provider Emergency Medicine; PCP Family Medicine
DX: R07.9 Chest pain, unspecified (principal); Z79.84 Long term (current) use of oral hypoglycemic drugs; F17.210 Nicotine dependence, cigarettes, uncomplicated; J44.9 Chronic obstructive pulmonary disease, unspecified; I10 Essential (primary) hypertension; E11.9 Type 2 diabetes mellitus without complications
CPT/HCPCS: 71045; 80053; 83690; 83880; 84484; 85025; 85378; 93005; 96374; 99285; J3010

== ENCOUNTER 2022-07-12 10:33 | Outpatient (CLI) | payer MEDICAID, SELFPAY ==
--- NOTE | 2022-07-12 10:15 | MR_ITS ---
WS: [id number] MRI CERVICAL SPINE NONCONTRAST HISTORY: Chronic neck pain, headaches and RIGHT arm pain. COMPARISON: Radiograph 02/10/2022 Technique: Multiplanar, multisequence noncontrast imaging of the cervical spine. Mild straightening of the normal cervical lordosis. Disc spaces are mildly narrowed and desiccated, m ost significant at C5-6 and C6-7. No fracture or marrow edema. Signal within the cervical cord is normal. Visualized posterior fossa is unremarkable. Craniocervical junction, C1 and C2 relationship, odontoid process and soft tissues are normal. C2-C3: Mild osteophytic ridging. No stenosis. C3-C4: Mild diffuse osteophytic ridging with mild encroachment upon the ventral thecal sac and forami na. Mild central and foraminal stenosis. C4-C5: Diffuse annular disc bulging and osteophytic ridging with facet arthritis. Effacement of CSF. Moderate central and mild foraminal stenosis. Mild facet arthritis. C5-C6: Diffuse annular disc bulging and osteophytic ridging with moderate facet arthritis. Bilateral disc osteophyte complexes but greater on the LEFT. Moderate to severe central and bilateral foraminal stenosis. C6-C7: Diffuse annular disc bulging with osteophytic ridging and facet arthritis. Moderate to severe central and bilateral foraminal stenosis. C7-T1: No stenosis. Paravertebral soft tissues are negative. MR/MR cervical spin wo con* [id number] IMPRESSION: 1. Multilevel degenerative disc disease and spondylosis. 2. Moderate to severe central and bilateral foraminal stenosis at C5-6 and C6- 7 as described above. 3. Moderate central with mild bilateral foraminal stenosis at C4-5. 4. Mild central and foraminal stenosis at C3-4.
== END 2022-07-12 10:34 | disposition home or self-care (01) ==
PROVIDERS: PCP Family Medicine; Visit Provider Physician Assistant
DX: R51.9 Headache, unspecified (principal); M79.601 Pain in right arm; M50.30 Other cervical disc degeneration, unspecified cervical region; M47.812 Spondylosis without myelopathy or radiculopathy, cervical region; M48.02 Spinal stenosis, cervical region
CPT/HCPCS: 72141

== ENCOUNTER → 2022-11-02 15:06 | Outpatient (BNVA) | payer MEDICAID, SELFPAY | PROVIDERS: PCP Family Medicine; Visit Provider Family Medicine | DX: E78.00 Pure hypercholesterolemia, unspecified (principal); E11.9 Type 2 diabetes mellitus without complications | CPT/HCPCS: 80053; 80061; 83036; 85025 ==

== ENCOUNTER → 2022-11-10 13:35 | Outpatient (BNVA) | payer MEDICAID, SELFPAY | PROVIDERS: PCP Family Medicine; Visit Provider Orthopaedic Surgery | DX: M47.22 Other spondylosis with radiculopathy, cervical region (principal); Z01.818 Encounter for other preprocedural examination | CPT/HCPCS: 36415; 80053; 83036; 85025; 99214 ==

== ENCOUNTER 2022-12-06 06:36 | Outpatient (CLI) | payer MEDICAID, SELFPAY ==
[2022-12-06 06:44] VITALS: BMI 33.1
--- NOTE | 2022-12-06 07:16 | ECG_ITS ---
[facility] Test Date: 2022-12-06 Pat Name: Jenn Bonilla Department: Room: Gender: Female Paperhanger Pipe: Marianna Hidalgo : 1975 Requested By: Clarita Brian Order Number: [id number] Blu MD: Clarita Brian M.D. Interpretive Statements NAME OF STUDY: LEXISCAN SESTAMIBI STRESS TEST INDICATION: Surgical clearance PROCEDURE: At the baseline, the blood pressure was 138/85 mmHg with a heart rate of 67 bpm. The electrocardiogram showed sinus rhythm, normal axis with normal ST and T's. The Lexiscan was infused over a period of 20 seconds. A total of 0.4 milligrams of Lexiscan was infused. The stress phase was continued for a total of 5 minutes. Heart rate at the end of the stress phase was 85 bpm with a blood pressure 133/82 mmHg. The EKG at the peak infusion revealed sinus rhythm with no significant ST-T wave changes. Sestamibi was injected 20 seconds after the Lexiscan infusion. Blood pressure at the end of the recovery phase was 132/84 mmHg with a heart rate of 86 beats per minute. CONCLUSION: 1. No significant EKG changes with the LexiScan infusion. 2. No LexiScan induced chest pain or cardiac arrhythmia. 3. Normal blood pressure and heart rate response. 4. Sestamibi/sestamibi perfusion scan pending; see separate report. Electronically Signed On 12-12-2022 14:25:13 CDT by Clarita Brian M.D. [id number]
--- NOTE | 2022-12-06 07:17 | NMCV_ITS ---
NM neetu perf SPECT r/s* [id number] [place], [place] Age: 47 Gender: F : 1975 Exam Date: 12/06/2022 07:17 Ordering Phys: Clarita Brian MD ([email or web address]) Technologist: JONG Schaeffer Exam Location: [facility] Indications: CHEST PAIN, Pre op clearance STRESS TEST Please see separate stress test report in [facility] for full findings IMAGE PROTOCOL Rest/Stress 1 Lexiscan Day Radiopharmaceutical Dose (mCi) Administration Site Administered by Rest: Tc-99m 10.6 IV JONG Blackwell Sestamibi Stress:Tc-99m 32.8 IV JONG Blackwell Sestamibi Rest: 06-Dec-2022 60 Discovery 630 Stress: 06-Dec-2022 30 Discovery 630 0.4mg Lexiscan. Images obtained in supine and prone position. SPECT RESULTS Technical Quality: Excellent Raw Data Analysis: Normal Image Corrections: No attenuation or motion correction applied Summed Stress Score: 0 Summed Rest Score: 0 Summed Difference Score: 0 PERFUSION FINDINGS SPECT images demonstrate homogeneous tracer distribution throughout the myocardium. FUNCTIONAL RESULTS (calculated via Gated SPECT) Stress Image LV EF (%): 69 Stress EDV (mL):98 TID: 0.88 Stress ESV (mL):30 FUNCTIONAL FINDINGS: The left ventricle is normal in size. Transient Ischemia Dilatation of 0.88. The left ventricular ejection fraction is normal with a value of 69%. There is normal left ventricular wall thickening. IMPRESSIONS 1. Myocardial perfusion imaging is normal. 2. Overall left ventricular systolic function is normal without regional wall motion abnormalities, LVEF=69%. 3. No EKG changes with Lexiscan infusion. 4. Scan indicates low risk for cardiac events. Clarita Brian MD (Electronically Signed) Final Date: 12 December 2022 14:27 S
[2022-12-06] MEDS: regadenoson 0.4 Mg/5 ml Syringe IVP (08:17)
[2022-12-06 08:49] VITALS: BP 132/84; PULSE 84
== END 2022-12-06 06:37 | disposition home or self-care (01) ==
LOC: CDL 06:37
PROVIDERS: PCP Family Medicine; Visit Provider Internal Medicine Cardiovascular Disease
DX: Z01.810 Encounter for preprocedural cardiovascular examination (principal); R07.9 Chest pain, unspecified
CPT/HCPCS: 36415; 78452; 93017; 96374; A9500; J2785

== ENCOUNTER → 2022-12-30 10:00 | Outpatient (BNVA) | payer MEDICAID, SELFPAY | PROVIDERS: PCP Family Medicine; Visit Provider Obstetrics & Gynecology | DX: R39.9 Unspecified symptoms and signs involving the genitourinary system (principal); Z11.3 Encounter for screening for infections with a predominantly sexual mode of transmission | CPT/HCPCS: 86592; 87491; 87522; 87591; 87661; 87806 ==

== ENCOUNTER 2023-02-28 23:55 | Emergency (ER) | payer MEDICAID, SELFPAY ==
[2023-02-28 23:55] VITALS: BP 120/92; PULSE 80; RESP 18; TEMP 36.6; O2SAT 96; BMI 40.3
[2023-03-01 00:02] LABS: Glucose Point of Care 144 mg/dL (70-110)
--- NOTE | 2023-03-01 00:09 | ED_ITS ---
HPI - Neck Pain/Injury General: Chief Complaint: Neck Pain/Injury Stated Complaint: N/V Time Seen by Provider: 02/28/23 23:56 PFSH ED PFSH: Medical History Bilateral carpal tunnel syndrome Chronic pain COPD (chronic obstructive pulmonary disease) Gastroesophageal reflux disease without esophagitis Hypercholesteremia Hypertension Intervertebral disc disorder with radiculopathy of lumbar region Large breasts Neuropathy due to secondary diabetes Obesity, morbid Psychiatric care Sleep apnea Type 2 diabetes mellitus Surgical History H/O elbow surgery History of cholecystectomy Hx of hysterectomy 2001, partial hysterectomy Hx of oral surgery Hx of tubal ligation Family History Mother Diabetes Hypertension Father Diabetes Hyperlipidemia Hypertension Stroke Sister Diabetes Brother Hypertension Stroke Social History Smoking and tobacco status: current every day smoker cigarettes Packs smoked per day: 1 Years cigarettes smoked: 20 Alcohol intake: never Substance/Drug Use: never Course Vital Signs: Vital signs: Vital Signs Temperature 97.9 F 02/28/23 23:55 Pulse Rate 80 02/28/23 23:55 Respiratory Rate 18 02/28/23 23:55 Blood Pressure 120/92 02/28/23 23:55 Pulse Oximetry 96 02/28/23 23:55 Oxygen Delivery Me thod Room Air 02/28/23 23:55 MDM - Neck Pain/Injury Lab Data Laboratory Results POC Glucose 144 mg/dL (70-110) H 02/28/23 23:59 Discharge Plan Discharge Condition: Stable Prescriptions: No Action lisinopril 20 mg tablet 20 mg PO DAILY Qty: 30 8RF ibuprofen 200 mg tablet 200 mg PO Q6H PRN (Reason: Pain) Excedrin Migraine 250-250-65 mg tablet 1 tab PO Q6H PRN (Reason: Migraine Headache) nitroglycerin 0.4 mg tablet, sublingual 0.4 mg sublingual Q5M PRN (Reason: chest pain) Qty: 30 1RF Rx Instructions: do not exceed 3 doses per episode vilazodone [Viibryd] 40 mg tablet 40 mg PO .q am Qty: 30 1RF Rx Instructions: Take one tablet by mouth every morning risperidone 0.5 mg tablet 0.5 mg PO .qhs Qty: 30 1RF Rx Instructions: Take one tablet daily at bedtime albuterol sulfate [ProAir HFA] 90 mcg/actuation HFA aerosol inhaler See Rx Instructions .ROUTE .COMPLEX Qty: 9 3RF Dose Instruction: INHALE 1 PUFF BY MOUTH 4 TIMES DAILY NEEDED FOR SHORTNESS OF BREATH OR WHEEZING Rx Instructions: INHALE 1 PUFF BY MOUTH 4 TIMES DAILY NEEDED FOR SHORTNESS OF BREATH OR WHEEZING ondansetron HCl 4 mg tablet See Rx Instructions .ROUTE .COMPLEX Qty: 30 3RF Dose Instruction: TAKE 1 TABLET BY MOUTH EVERY 8 HOURS FOR 30 DAYS NEEDED FOR NAUSEA AND VOMITING. Rx Instructions: TAKE 1 TABLET BY MOUTH EVERY 8 HOURS FOR 30 DAYS NEEDED FOR NAUSEA AND VOMITING. PrePlus 27 mg iron- 1 mg tablet 1 tab PO DAILY 90 Days Qty: 90 3RF duloxetine 30 mg capsule,delayed release(DR/EC) 30 mg PO DAILY Qty: 30 0RF Hold Instructions: Doctor's Order hydroxyzine HCl 50 mg tablet 50 mg PO QID PRN (Reason: anxiety) Qty: 120 0RF fenofibrate nanocrystallized 145 mg tablet 145 mg PO DAILY Qty: 90 2RF (DME) OneTouch Ultra Test Strip See Rx Instructions .Route Qty: 100 3RF Rx Instructions: to use once daily in onetouch meter 90 day supply (DME) lancets [OneTouch Delica Lancets] 33 gauge [facility] [place] See Rx Instructions .Route Qty: 100 3RF Rx Instructions: use once daily to check blood sugar 90 day supply glipizide 5 mg tablet See Rx Instructions .ROUTE .COMPLEX Qty: 120 11RF Dose Instruction: Take 2 tablets by mouth twice daily Rx Instructions: Take 2 tablets by mouth twice daily metformin 500 mg tablet 500 mg PO BID Qty: 180 1RF Farxiga 5 mg tablet 5 mg PO DAILY Qty: 90 1RF (DME) blood-glucose meter [OneTouch Ultra2 Meter] [facility] [place] Rx Instructions .Route Qty: 1 0RF Rx Instructions: to check blood sugar once daily Symbicort 80-4.5 mcg/actuation HFA aerosol inhaler 2 puff INHALATION BID Qty: 10.2 2RF oxycodone-acetaminophen 10-325 mg tablet 1 tab PO Q8H PRN (Reason: pain) 30 Days Qty: 90 0RF omeprazole 20 mg capsule,delayed release(DR/EC) See Rx Instructions .ROUTE .COMPLEX Qty: 30 5RF Dose Instruction: Take 1 capsule by mouth once daily for 30 days Rx Instructions: Take 1 capsule by mouth once daily for 30 days pregabalin 150 mg capsule 150 mg PO TID Qty: 90 4RF propranolol 40 mg tablet 40 mg PO BID (DME) intraoperative neurophysiological monitoring See Rx Instructions .Route .MEDSUPPLY Qty: 1 0RF Rx Instructions: As directed Referrals: Len Wheat MD [Primary Care Provider] - Coding Level of Care Code ED Community Health Advisor for Joann Davis
--- NOTE | 2023-03-01 00:15 | W.ED.NECK ---
HPI - Neck Pain/Injury General: Chief Complaint: Neck Pain/Injury Stated Complaint: N/V Time Seen by Provider: 02/28/23 23:56 Source: patient and EMS Mode of arrival: EMS Limitations: no limitations History of Present Illness: 47-year-old female states she has a history of chronic neck and back pain. [place] having increased pain on her neck and back. States she does not get her new prescription filled until Monday. Rates her pain a 5 out of 10 denies any new injuries or new pain denies any weakness or fever. Associated symptoms: Denies headache(s) or nausea Review of Systems Const: Denies: fever(s), chills or change in appetite ENMT: Denies: throat pain or dental pain Card: Denies: chest pain Resp: Denies: dyspnea GI: Denies: abdominal pain, nausea, vomiting or diarrhea Musc: Reports: neck pain and back pain Skin/Breast: Denies: rash Neuro: Denies: headache(s) PFSH ED PFSH: Medical History Bilateral carpal tunnel syndrome Chronic pain COPD (chronic obstructive pulmonary disease) Gastroesophageal reflux disease without esophagitis Hypercholesteremia Hypertension Intervertebral disc disorder with radiculopathy of lumbar region Large breasts Neuropathy due to secondary diabetes Obesity, morbid Psychiatric care Sleep apnea Type 2 diabetes mellitus Surgical History H/O elbow surgery History of cholecystectomy Hx of hysterectomy 2001, partial hysterectomy Hx of oral surgery Hx of tubal ligation Family History Mother Diabetes Hypertension Father Diabetes Hyperlipidemia Hypertension Stroke Sister Diabetes Brother Hypertension Stroke Social History Smoking and tobacco status: current every day smoker cigarettes Packs smoked per day: 1 Years cigarettes smoked: 20 Alcohol intake: never Substance/Drug Use: never Physical Exam Const: COMMON NORMALS: no acute distress, patient oriented x3 and healthy appearing HENMT: COMMON NORMALS: normocephalic and atraumatic HEAD & SCALP: normocephalic and atraumatic Neck/C-Spine: COMMON NORMALS: full ROM and supple Chest: COMMONS NORMALS: normal inspection of the chest and normal palpation of entire chest wall Resp: COMMON NORMALS: normal respiratory effort Cardio: COMMON NORMALS: regular rate, regular rhythm and No murmurs present (Cardio) RATE: regular rate RHYTHM: regular rhythm GI: INSPECTION: Yes normal to inspection Extremity: COMMON NORMALS: normal to inspection and full ROM Neuro: COMMON NORMALS: patient oriented x3, moves all extremities and no focal motor deficits Psych: COMMON NORMALS: mental status grossly normal, Normal thought process present and cooperative THOUGHT PROCESS: Normal thought process present Skin: COMMON NORMALS: no rashes or lesions noted and no wounds GENERAL SKIN EXAM: no rashes or lesions noted Course Vital Signs: Vital signs: Vital Signs Temperature 97.9 F 02/28/23 23:55 Pulse Rate 85 03/01/23 00:23 Respiratory Rate 16 03/01/23 00:23 Blood Pressure 120/92 03/01/23 00:23 Pulse Oximetry 97 03/01/23 00:23 Oxygen Delivery Me thod Room Air 02/28/23 23:55 MDM - Neck Pain/Injury Medical Decision Making Patient presents with chronic neck and back pain with no acute findings her exam here is benign she is out of her oxycodone former she needs to follow-up with PCP for prescription for oxycodone we will prescribe her Naprosyn and Robaxin Medical Records I reviewed the patient's medical records. Lab Data I reviewed the patient's lab results. Laboratory Results POC Glucose 144 mg/dL (70-110) H 02/28/23 23:59 Discharge Plan Discharge Patient Disposition: Home Clinical Impression: Chronic pain Condition: Stable Prescriptions: New methocarbamol 750 mg tablet 750 mg PO Q6H PRN (Reason: spasms) Qty: 20 0RF Naprosyn 500 mg tablet 500 mg PO BID PRN (Reason: pain) Qty: 20 0RF No Action lisinopril 20 mg tablet 20 mg PO DAILY Qty: 30 8RF ibuprofen 200 mg tablet 200 mg PO Q6H PRN (Reason: Pain) Excedrin Migraine 250-250-65 mg tablet 1 tab PO Q6H PRN (Reason: Migraine Headache) nitroglycerin 0.4 mg tablet, sublingual 0.4 mg sublingual Q5M PRN (Reason: chest pain) Qty: 30 1RF Rx Instructions: do not exceed 3 doses per episode vilazodone [Viibryd] 40 mg tablet 40 mg PO .q am Qty: 30 1RF Rx Instructions: Take one tablet by mouth every morning risperidone 0.5 mg tablet 0.5 mg PO .qhs Qty: 30 1RF Rx Instructions: Take one tablet daily at bedtime albuterol sulfate [ProAir HFA] 90 mcg/actuation HFA aerosol inhaler See Rx Instructions .ROUTE .COMPLEX Qty: 9 3RF Dose Instruction: INHALE 1 PUFF BY MOUTH 4 TIMES DAILY NEEDED FOR SHORTNESS OF BREATH OR WHEEZING Rx Instructions: INHALE 1 PUFF BY MOUTH 4 TIMES DAILY NEEDED FOR SHORTNESS OF BREATH OR WHEEZING ondansetron HCl 4 mg tablet See Rx Instructions .ROUTE .COMPLEX Qty: 30 3RF Dose Instruction: TAKE 1 TABLET BY MOUTH EVERY 8 HOURS FOR 30 DAYS NEEDED FOR NAUSEA AND VOMITING. Rx Instructions: TAKE 1 TABLET BY MOUTH EVERY 8 HOURS FOR 30 DAYS NEEDED FOR NAUSEA AND VOMITING. PrePlus 27 mg iron- 1 mg tablet 1 tab PO DAILY 90 Days Qty: 90 3RF duloxetine 30 mg capsule,delayed release(DR/EC) 30 mg PO DAILY Qty: 30 0RF Hold Instructions: Doctor's Order hydroxyzine HCl 50 mg tablet 50 mg PO QID PRN (Reason: anxiety) Qty: 120 0RF fenofibrate nanocrystallized 145 mg tablet 145 mg PO DAILY Qty: 90 2RF (DME) OneTouch Ultra Test Strip See Rx Instructions .Route Qty: 100 3RF Rx Instructions: to use once daily in onetouch meter 90 day supply (DME) lancets [OneTouch Delica Lancets] 33 gauge [facility] [place] See Rx Instructions .Route Qty: 100 3RF Rx Instructions: use once daily to check blood sugar 90 day supply glipizide 5 mg tablet See Rx Instructions .ROUTE .COMPLEX Qty: 120 11RF Dose Instruction: Take 2 tablets by mouth twice daily Rx Instructions: Take 2 tablets by mouth twice daily metformin 500 mg tablet 500 mg PO BID Qty: 180 1RF Farxiga 5 mg tablet 5 mg PO DAILY Qty: 90 1RF (DME) blood-glucose meter [OneTouch Ultra2 Meter] [facility] [place] See Rx Instructions .Route Qty: 1 0RF Rx Instructions: to check blood sugar once daily Symbicort 80-4.5 mcg/actuation HFA aerosol inhaler 2 puff INHALATION BID Qty: 10.2 2RF oxycodone-acetaminophen 10-325 mg tablet 1 tab PO Q8H PRN (Reason: pain) 30 Days Qty: 90 0RF omeprazole 20 mg capsule,delayed release(DR/EC) See Rx Instructions .ROUTE .COMPLEX Qty: 30 5RF Dose Instruction: Take 1 capsule by mouth once daily for 30 days Rx Instructions: Take 1 capsule by mouth once daily for 30 days pregabalin 150 mg capsule 150 mg PO TID Qty: 90 4RF propranolol 40 mg tablet 40 mg PO BID (DME) intraoperative neurophysiological monitoring See Rx Instructions .Route .MEDSUPPLY Qty: 1 0RF Rx Instructions: As directed Discharge Orders: Discharge ED (Routine); Ordered 03/01/23 Ordered By: Paula Bell Referrals: Len Wheat MD [Primary Care Provider] - 1-3 days Discharge Diet: Advance as tolerated Discharge Activity: Resume usual activity Patient Instructions: Pain Management Coding Level of Care Code ED [employer] for Joann Davis
[2023-03-01 00:23] VITALS: BP 120/92; PULSE 85; RESP 16; O2SAT 97
[2023-03-01] MEDS: HYDROcodone-acetaminophen 7.5-325 mg Tablet 1 TAB PO (00:23)
== END 2023-03-01 00:26 | disposition home or self-care (01) ==
PROVIDERS: Emergency Provider Emergency Medicine; PCP Family Medicine
DX: G89.29 Other chronic pain (principal); Z79.84 Long term (current) use of oral hypoglycemic drugs; F17.210 Nicotine dependence, cigarettes, uncomplicated; J44.9 Chronic obstructive pulmonary disease, unspecified; I10 Essential (primary) hypertension; E11.9 Type 2 diabetes mellitus without complications
CPT/HCPCS: 36416; 82962; 99283

== ENCOUNTER → 2023-03-02 15:35 | Outpatient (BNVA) | payer MEDICAID, SELFPAY | PROVIDERS: PCP Family Medicine; Visit Provider Family Medicine | DX: E11.9 Type 2 diabetes mellitus without complications (principal); E78.00 Pure hypercholesterolemia, unspecified; I10 Essential (primary) hypertension | CPT/HCPCS: 80053; 80061; 83036; 83721; 85025 ==

== ENCOUNTER → 2023-10-12 15:58 | Outpatient (BNVA) | payer MEDICAID, SELFPAY ==
[2023-09-12 10:26] VITALS: BP 126/86; BMI 31.1
== END ==
PROVIDERS: PCP Family Medicine; Visit Provider Family Medicine
DX: Z20.2 Contact with and (suspected) exposure to infections with a predominantly sexual mode of transmission (principal); I10 Essential (primary) hypertension; E78.00 Pure hypercholesterolemia, unspecified
CPT/HCPCS: 80053; 80061; 81000; 85025; 87077; 87086; 87184; 87491; 87591

== ENCOUNTER → 2023-11-07 11:16 | Outpatient (BNVA) | payer MEDICAID, SELFPAY ==
[2023-09-12 10:26] VITALS: BP 126/86; BMI 31.1
== END ==
PROVIDERS: PCP Family Medicine; Visit Provider Podiatrist Foot & Ankle Surgery
DX: B35.1 Tinea unguium (principal); G62.9 Polyneuropathy, unspecified; E11.42 Type 2 diabetes mellitus with diabetic polyneuropathy; Z79.84 Long term (current) use of oral hypoglycemic drugs
CPT/HCPCS: 11721; 99203

== ENCOUNTER 2024-04-10 09:51 | Oncology outpatient (recurring) (ONCR) | payer MEDICAID, SELFPAY ==
[2023-09-12 10:26] VITALS: BP 126/86; BMI 31.1
[2024-04-10 10:50] LABS: Basophils # 0.1 10^3/uL (0.0-0.1); Basophils % 0.7 %; Eosinophils # 0.2 10^3/uL (0.0-0.8); Eosinophils % 1.4 %; Hematocrit 42.4 % (36-47); Mean Corpuscular HGB Conc 34.2 g/dL (30-55); Mean Corpuscular Volume 90.6 fl (85-98); Mean Platelet Volume 10.8 fL (7.4-10.4); Monocytes # 0.7 10^3/uL (0.2-0.9); Monocytes % 5.8 %; Neutrophils # 5.49 10^3/uL (1.8-7.7); Neutrophils % 43.9 %; Nucleated Red Blood Cells % 0 %; Platelet Count 286 10^3/cmm (157-399); Red Blood Count 4.68 10^6/uL (3.85-5.65); Red Cell Distribution Width 13.4 % (12.1-15.1); White Blood Count 12.49 10^3/uL (3.29-11.43)
[2024-04-10 11:05] LABS: Alanine Aminotransferase 19 U/L (0-33); Albumin Level 3.9 g/dL (3.5-5.2); Alkaline Phosphatase 76 U/L (35-105); Blood Urea Nitrogen 15 mg/dL (6-20); Calcium 9.1 mg/dL (8.5-10.5); Carbon Dioxide 26 mmol/L (22-29); Chloride 99 mmol/L (98-107); Creatinine Clr Calc Pharmacy 81.5877; Globulin 3.1 g/dL (1.3-4.6); Glomerular Filtration Rate 66.8 mL/min (90-130); Glucose 112 mg/dL (65-115); Osmolality Calculated 276 mOsm/kg (285-295); Sodium 132 mmol/L (136-145); Total Bilirubin 0.2 mg/dL (0.15-1.2); Uric Acid 3.7 mg/dL (2.4-5.7)
[2024-04-10 11:14] LABS: Aspartate Amino Transferase 21 U/L (0-32)
[2024-04-10 11:16] LABS: Lactate Dehydrogenase 185 U/L (135-214)
[2024-04-12 07:26] LABS: Leukemia Profile (BBPL) See Report
== END 2024-05-02 23:59 | disposition home or self-care (01) ==
PROVIDERS: PCP Family Medicine; Visit Provider Internal Medicine Hematology & Oncology
DX: D72.820 Lymphocytosis (symptomatic) (principal); D72.829 Elevated white blood cell count, unspecified
CPT/HCPCS: 36415; 80053; 83615; 84550; 85025; 88184; 88185; 99204

== ENCOUNTER → 2024-08-06 09:03 | Outpatient (BNVA) | payer MEDICAID, SELFPAY ==
[2023-09-12 10:26] VITALS: BP 126/86; BMI 31.1
== END ==
PROVIDERS: PCP Family Medicine; Visit Provider Nurse Practitioner Family
DX: R10.2 Pelvic and perineal pain (principal); I10 Essential (primary) hypertension; E78.00 Pure hypercholesterolemia, unspecified; E11.9 Type 2 diabetes mellitus without complications; N89.8 Other specified noninflammatory disorders of vagina; M47.22 Other spondylosis with radiculopathy, cervical region; G89.4 Chronic pain syndrome; J41.0 Simple chronic bronchitis; F17.200 Nicotine dependence, unspecified, uncomplicated
CPT/HCPCS: 80053; 80061; 81000; 83036; 84443; 85025

== ENCOUNTER → 2025-02-13 14:51 | Outpatient (BNVA) | payer MEDICAID, SELFPAY ==
[2023-09-12 10:26] VITALS: BP 126/86; BMI 31.1
== END ==
PROVIDERS: PCP Family Medicine; Visit Provider Family Medicine
DX: E11.9 Type 2 diabetes mellitus without complications (principal)
CPT/HCPCS: 82962